=== PATIENT | male | born 1930 | race Caucasian/White ===

== ENCOUNTER 2021-08-05 10:39 | Emergency (ER) | payer MEDICARE ==
[~2021-08-05] VITALS: Ht 177.8 cm; Wt 90.7 kg
[2021-08-05] MEDS ORDERED: FUROSEMIDE INJ 10 MG/ML 2 ML VIAL IV ONE (11:30)
[2021-08-05] MEDS ORDERED: SODIUM CHLORIDE FLUSH 10 ML SYR IV PRN (11:30)
[2021-08-05 11:53] LABS: BASOPHILS % 0.3 % (0.0-1.0); EOSINOPHILS % 0.5 % (0.0-6.0); HEMATOCRIT 35.7 % (38.2-49.6); HEMOGLOBIN 10.7 g/dL (14.0-18.0); LYMPHOCYTES # (AUTO) 0.3 (1.0-3.2); LYMPHOCYTES % 5.7 % (18.0-39.1); MEAN CORPUSCULAR HEMOGLOBIN 27.4 pg (28-32); MEAN CORPUSCULAR VOLUME 91.3 fL (81-99); MONOCYTES # (AUTO) 0.5 (0.2-0.8); MONOCYTES % 8.3 % (4.4-11.3); NEUTROPHILS # (AUTO) 4.9 (2.1-6.9); NEUTROPHILS % 84.7 % (38.7-80.0); PLATELET COUNT 258 x10e3/uL (140-360); RED BLOOD COUNT 3.91 x10e6/uL (4.3-5.7); RED CELL DISTRIBUTION WIDTH 16.1 % (11.7-14.4)
[2021-08-05] MEDS ORDERED: SIMVASTATIN40 MG PO (12:00)
[2021-08-05] MEDS ORDERED: MELATONIN3 MG PO (12:00)
[2021-08-05] MEDS ORDERED: BIOTIN5000 MCG PO (12:00)
[2021-08-05] MEDS ORDERED: LISINOPRIL10 MG PO (12:00)
[2021-08-05] MEDS ORDERED: OMEPRAZOLE40 MG PO (12:00)
[2021-08-05] MEDS ORDERED: MEMANTINE HCL5 MG PO (12:00)
[2021-08-05] MEDS ORDERED: NIFEDIPINE ER30 M1 PO (12:00)
[2021-08-05] MEDS ORDERED: B-121000 MC1 PO (12:00)
[2021-08-05] MEDS ORDERED: VITAMIN E1000 UNI1 PO (12:00)
[2021-08-05] MEDS ORDERED: MULTI-VITAMIN1 EACH PO (12:00)
[2021-08-05 12:10] LABS: INR 0.93; PROTHROMBIN TIME 13.3 seconds (11.9-14.5)
[2021-08-05 12:11] LABS: PARTIAL THROMBOPLASTIN TIME 33.4 seconds (23.8-35.5)
[2021-08-05 12:14] LABS: ALBUMIN 2.8 g/dL (3.5-5.0); ALBUMIN/GLOBULIN RATIO 0.7 (0.8-2.0); ANION GAP 13.2 mmol/L (8-16); CALCIUM 8.5 mg/dL (8.4-10.2); CREATININE, SERUM 1.19 mg/dL (0.72-1.25); POTASSIUM 4.2 mmol/L (3.5-5.1)
== END 2021-08-05 15:21 | disposition home or self-care (01) ==
LOC: ER 11:34
DX: R60.9 Edema, unspecified (principal); J90 Pleural effusion, not elsewhere classified; F03.90 Unspecified dementia, unspecified severity, without behavioral disturbance, psychotic disturbance, mood disturbance, and anxiety; I10 Essential (primary) hypertension; E78.5 Hyperlipidemia, unspecified
CPT/HCPCS: 36415; 71045; 80053; 83880; 84484; 85025; 85610; 85730; 93005; 94760; 99284; J1940

== ENCOUNTER 2021-08-16 15:10 | Inpatient (IN) | payer MEDICARE ==
[~2021-08-16] VITALS: Ht 177.8 cm; Wt 76.7 kg
[~2021-08-16 15:10] MED LIST: B-121000 MC1 PO; BIOTIN5000 MCG PO; LISINOPRIL10 MG PO; MELATONIN3 MG PO; MEMANTINE HCL5 MG PO; MULTI-VITAMIN1 EACH PO; NIFEDIPINE ER30 M1 PO; OMEPRAZOLE40 MG PO; SIMVASTATIN40 MG PO; VITAMIN E1000 UNI1 PO
[2021-08-16] MEDS ORDERED: SODIUM CHLORIDE FLUSH 10 ML SYR INJ PRN ×2 (15:30→17:15)
[2021-08-16] MEDS ORDERED: FUROSEMIDE INJ 10 MG/ML 4 ML VIAL IV ONE (15:30)
[2021-08-16 15:41] LABS: HEMATOCRIT 37.5 % (38.2-49.6); HEMOGLOBIN 11.6 g/dL (14.0-18.0); LYMPHOCYTES # (AUTO) 0.2 (1.0-3.2); LYMPHOCYTES % 3.1 % (18.0-39.1); MEAN CORPUSCULAR HEMOGLOBIN 27.3 pg (28-32); MEAN CORPUSCULAR HGB CONC 30.9 g/dL (31-35); MEAN CORPUSCULAR VOLUME 88.2 fL (81-99); MONOCYTES # (AUTO) 0.6 (0.2-0.8); MONOCYTES % 7.7 % (4.4-11.3); NEUTROPHILS # (AUTO) 6.7 (2.1-6.9); NEUTROPHILS % 88.8 % (38.7-80.0); PLATELET COUNT 277 x10e3/uL (140-360); RED BLOOD COUNT 4.25 x10e6/uL (4.3-5.7)
[2021-08-16 16:02] LABS: ALBUMIN/GLOBULIN RATIO 0.8 (0.8-2.0); ANION GAP 17.8 mmol/L (8-16); CALCIUM 8.9 mg/dL (8.4-10.2); CREATININE, SERUM 1.1 mg/dL (0.72-1.25); POTASSIUM 3.8 mmol/L (3.5-5.1)
[2021-08-16 16:08] LABS: CREATINE KINASE MB 1.2 ng/mL (0-5.0)
[2021-08-16] MEDS ORDERED: ELIQUIS5 MG PO (16:54)
[2021-08-16] MEDS ORDERED: LASIX40 MG PO (16:54)
[2021-08-16] MEDS ORDERED: ASPIRIN81 MG PO (16:54)
[2021-08-16 18:13] LABS: CLARITY,URINE CLEAR (CLEAR); COLOR,URINE YELLOW (YELLOW); KETONES,URINE NEGATIVE (NEGATIVE); LEUKOCYTE ESTERASE ,URINE NEGATIVE (NEGATIVE); NITRITE,URINE NEGATIVE (NEGATIVE); PROTEIN,URINE DIPSTICK NEGATIVE (NEGATIVE); URINE UROBILINOGEN 0.2 mg/dL (0.2 - 1)
[2021-08-16 18:25] LABS: EPITHELIAL CELLS,URINE FEW /LPF
[2021-08-16] MEDS ORDERED: ONDANSETRON HCL INJ 2MG/ML 2ML 2 MG/ML VIAL IV PRN (19:00)
[2021-08-16] MEDS ORDERED: ACETAMINOPHEN 325 MG TAB PO PRN (19:00)
[2021-08-16 21:44] VITALS: BP 105/59
[2021-08-16 22:30] VITALS: BP 105/59
[2021-08-17] VITALS (9 sets, daily range): BP systolic 99–119; BP diastolic 69–85
[2021-08-17] MEDS ORDERED: FUROSEMIDE40 MG PO (02:30)
[2021-08-17] MEDS ORDERED: MEMANTINE HCL10 MG PO (02:30)
[2021-08-17 04:46] LABS: EOSINOPHILS % 0.3 % (0.0-6.0); HEMATOCRIT 36.7 % (38.2-49.6); HEMOGLOBIN 11.3 g/dL (14.0-18.0); LYMPHOCYTES # (AUTO) 0.4 (1.0-3.2); LYMPHOCYTES % 7.1 % (18.0-39.1); MEAN CORPUSCULAR HEMOGLOBIN 27.2 pg (28-32); MEAN CORPUSCULAR HGB CONC 30.8 g/dL (31-35); MEAN CORPUSCULAR VOLUME 88.4 fL (81-99); MONOCYTES # (AUTO) 0.7 (0.2-0.8); MONOCYTES % 12.9 % (4.4-11.3); NEUTROPHILS # (AUTO) 4.6 (2.1-6.9); NEUTROPHILS % 79.5 % (38.7-80.0); PLATELET COUNT 249 x10e3/uL (140-360); RED BLOOD COUNT 4.15 x10e6/uL (4.3-5.7); RED CELL DISTRIBUTION WIDTH 15.9 % (11.7-14.4)
[2021-08-17 05:10] LABS: ALBUMIN 2.7 g/dL (3.5-5.0); ALBUMIN/GLOBULIN RATIO 0.7 (0.8-2.0); ANION GAP 18.4 mmol/L (8-16); CALCIUM 8.5 mg/dL (8.4-10.2); CREATININE, SERUM 1.08 mg/dL (0.72-1.25); POTASSIUM 3.4 mmol/L (3.5-5.1)
[2021-08-17] MEDS ORDERED: FUROSEMIDE INJ 10 MG/ML 4 ML VIAL IV SCH (09:00)
[2021-08-17 11:05] LABS: INR 1.32; PROTHROMBIN TIME 17.5 seconds (11.9-14.5)
[2021-08-17] MEDS: PANTOPRAZOLE SOD 40 MG TABEC PO SCH (12:27)
[2021-08-17] MEDS: MEMANTINE 10 MG TAB PO SCH (16:57)
[2021-08-17] MEDS: APIXABAN 5 MG TABLET PO SCH (16:57)
[2021-08-17] MEDS: MELATONIN 5 MG TABLET PO SCH (21:12)
[2021-08-17] MEDS: SIMVASTATIN 40 MG TAB PO SCH (21:12)
[2021-08-18] VITALS (8 sets, daily range): BP systolic 105–127; BP diastolic 55–77
[2021-08-18] MEDS ORDERED: OMEPRAZOLE 20 MG CAP PO SCH (06:30)
[2021-08-18 06:38] LABS: HEMATOCRIT 36.6 % (38.2-49.6); HEMOGLOBIN 11.4 g/dL (14.0-18.0); MEAN CORPUSCULAR HEMOGLOBIN 27.7 pg (28-32); MEAN CORPUSCULAR HGB CONC 31.1 g/dL (31-35); MEAN CORPUSCULAR VOLUME 88.8 fL (81-99); PLATELET COUNT 269 x10e3/uL (140-360); RED BLOOD COUNT 4.12 x10e6/uL (4.3-5.7); RED CELL DISTRIBUTION WIDTH 15.9 % (11.7-14.4)
[2021-08-18 07:07] LABS: ANION GAP 17.2 mmol/L (8-16); CALCIUM 8.4 mg/dL (8.4-10.2); CREATININE, SERUM 1.18 mg/dL (0.72-1.25); POTASSIUM 3.2 mmol/L (3.5-5.1)
[2021-08-18 08:28] LABS: EOSINOPHILS % (MANUAL) 1 % (0-7); LYMPHOCYTES % (MANUAL) 6 % (19-48); MONOCYTES % (MANUAL) 10 % (3.4-9.0); NEUTROPHILS % (MANUAL) 83 % (40-74)
[2021-08-18 08:30] LABS: PLATELET ESTIMATE ADEQUATE; PLATELET MORPHOLOGY COMMENT NORMAL; RBC MORPHOLOGY COMMENT NORMAL
[2021-08-18] MEDS: NIFEDIPINE CR 30 MG TAB PO SCH (09:00)
[2021-08-18] MEDS: LISINOPRIL 10 MG TAB PO SCH (09:00)
[2021-08-18] MEDS: APIXABAN 5 MG TABLET PO SCH ×2 (09:00→17:09)
[2021-08-18] MEDS: ASPIRIN 81 MG CHEW TAB PO SCH (09:00)
[2021-08-18] MEDS: FUROSEMIDE INJ 10 MG/ML 2 ML VIAL IV SCH (09:05)
[2021-08-18] MEDS: PANTOPRAZOLE SOD 40 MG TABEC PO SCH (09:07)
[2021-08-18] MEDS: MEMANTINE 10 MG TAB PO SCH ×2 (09:07→17:09)
[2021-08-18] MEDS ORDERED: POTASSIUM CHLORIDE 10MEQ EA PO ONE (10:15)
[2021-08-18 10:47] LABS: ANION GAP 19.2 mmol/L (8-16); CALCIUM 8.6 mg/dL (8.4-10.2); CREATININE, SERUM 1.09 mg/dL (0.72-1.25); POTASSIUM 3.2 mmol/L (3.5-5.1)
[2021-08-18 14:46] LABS: BODY FLUID APPEARANCE CLOUDY; BODY FLUID COLOR RED; BODY FLUID TYPE PLEURAL
[2021-08-18 14:55] LABS: RBC,BODY FLUID 22000 cells/uL; WBC,BODY FLUID 99 cells/uL
[2021-08-18 18:35] LABS: LYMPHOCYTES,BODY FLUID 64 %; MONO/MACROPHG,BODY FLUID 34 %; NEUTROPHILS,BODY FLUID 2 %
[2021-08-18] MEDS: MELATONIN 5 MG TABLET PO SCH (21:00)
[2021-08-18] MEDS: SIMVASTATIN 40 MG TAB PO SCH (21:00)
[2021-08-19] VITALS (7 sets, daily range): BP systolic 92–134; BP diastolic 56–96
[2021-08-19 06:02] LABS: HEMATOCRIT 42.3 % (38.2-49.6); HEMOGLOBIN 12.8 g/dL (14.0-18.0); MEAN CORPUSCULAR HEMOGLOBIN 27.5 pg (28-32); MEAN CORPUSCULAR HGB CONC 30.3 g/dL (31-35); MEAN CORPUSCULAR VOLUME 90.8 fL (81-99); PLATELET COUNT 298 x10e3/uL (140-360); RED BLOOD COUNT 4.66 x10e6/uL (4.3-5.7); RED CELL DISTRIBUTION WIDTH 15.8 % (11.7-14.4)
[2021-08-19 09:37] LABS: LYMPHOCYTES % (MANUAL) 8 % (19-48); MONOCYTES % (MANUAL) 5 % (3.4-9.0); NEUTROPHILS % (MANUAL) 87 % (40-74); PLATELET ESTIMATE ADEQUATE; PLATELET MORPHOLOGY COMMENT NORMAL; RBC MORPHOLOGY COMMENT NORMAL
[2021-08-19] MEDS: APIXABAN 5 MG TABLET PO SCH ×2 (09:42→17:36)
[2021-08-19] MEDS: MEMANTINE 10 MG TAB PO SCH ×2 (09:42→17:36)
[2021-08-19] MEDS: PANTOPRAZOLE SOD 40 MG TABEC PO SCH (09:42)
[2021-08-19] MEDS: FUROSEMIDE INJ 10 MG/ML 2 ML VIAL IV SCH (09:42)
[2021-08-19] MEDS: ASPIRIN 81 MG CHEW TAB PO SCH (09:42)
[2021-08-19] MEDS: LISINOPRIL 10 MG TAB PO SCH (09:44)
[2021-08-19] MEDS: NIFEDIPINE CR 30 MG TAB PO SCH (09:44)
[2021-08-19] MEDS ORDERED: POTASSIUM CHLORIDE 10MEQ EA PO ONE (11:15)
[2021-08-19] MEDS ORDERED: ONDANSETRON HCL 4 MG ORAL DISINTEGRATING TAB PO PRN (14:30)
[2021-08-19] MEDS: SIMVASTATIN 40 MG TAB PO SCH (21:32)
[2021-08-19] MEDS: MELATONIN 5 MG TABLET PO SCH (21:32)
[2021-08-20] VITALS (7 sets, daily range): BP systolic 80–113; BP diastolic 50–92
[2021-08-20] MEDS: LISINOPRIL 10 MG TAB PO SCH (08:52)
[2021-08-20] MEDS: DOCUSATE SODIUM 100 MG CAP PO SCH ×2 (08:52→17:00)
[2021-08-20] MEDS: APIXABAN 5 MG TABLET PO SCH (08:52)
[2021-08-20] MEDS: MEMANTINE 10 MG TAB PO SCH ×2 (08:52→17:00)
[2021-08-20] MEDS: PANTOPRAZOLE SOD 40 MG TABEC PO SCH (08:52)
[2021-08-20] MEDS: FUROSEMIDE INJ 10 MG/ML 2 ML VIAL IV SCH (08:52)
[2021-08-20] MEDS: ASPIRIN 81 MG CHEW TAB PO SCH (08:52)
[2021-08-20] MEDS: NIFEDIPINE CR 30 MG TAB PO SCH (08:53)
[2021-08-20] MEDS: MELATONIN 5 MG TABLET PO SCH (21:03)
[2021-08-20] MEDS: SIMVASTATIN 40 MG TAB PO SCH (21:03)
[2021-08-21] VITALS (7 sets, daily range): BP systolic 92–132; BP diastolic 54–71
[2021-08-21 07:15] LABS: BASOPHILS % 0.3 % (0.0-1.0); EOSINOPHILS # (AUTO) 0.1 (0.0-0.4); EOSINOPHILS % 1.3 % (0.0-6.0); HEMATOCRIT 36.9 % (38.2-49.6); HEMOGLOBIN 11.3 g/dL (14.0-18.0); LYMPHOCYTES # (AUTO) 0.5 (1.0-3.2); LYMPHOCYTES % 7.7 % (18.0-39.1); MEAN CORPUSCULAR HEMOGLOBIN 27.4 pg (28-32); MEAN CORPUSCULAR HGB CONC 30.6 g/dL (31-35); MEAN CORPUSCULAR VOLUME 89.3 fL (81-99); MONOCYTES # (AUTO) 0.6 (0.2-0.8); MONOCYTES % 9.8 % (4.4-11.3); NEUTROPHILS # (AUTO) 4.8 (2.1-6.9); NEUTROPHILS % 80.4 % (38.7-80.0); PLATELET COUNT 250 x10e3/uL (140-360); RED BLOOD COUNT 4.13 x10e6/uL (4.3-5.7); RED CELL DISTRIBUTION WIDTH 15.8 % (11.7-14.4)
[2021-08-21 07:25] LABS: ANION GAP 14.9 mmol/L (8-16); CALCIUM 8.7 mg/dL (8.4-10.2); CREATININE, SERUM 1.03 mg/dL (0.72-1.25); POTASSIUM 3.9 mmol/L (3.5-5.1)
[2021-08-21] MEDS: MEMANTINE 10 MG TAB PO SCH ×2 (09:00→17:00)
[2021-08-21] MEDS: FUROSEMIDE INJ 10 MG/ML 2 ML VIAL IV SCH (09:00)
[2021-08-21] MEDS: ASPIRIN 81 MG CHEW TAB PO SCH (09:00)
[2021-08-21] MEDS: LISINOPRIL 10 MG TAB PO SCH (09:00)
[2021-08-21] MEDS: PANTOPRAZOLE SOD 40 MG TABEC PO SCH (09:00)
[2021-08-21] MEDS: DOCUSATE SODIUM 100 MG CAP PO SCH ×2 (09:00→17:00)
[2021-08-21] MEDS: MELATONIN 5 MG TABLET PO SCH (21:00)
[2021-08-21] MEDS: SIMVASTATIN 40 MG TAB PO SCH (21:00)
[2021-08-22 01:12] VITALS: BP 119/83
[2021-08-22 05:17] VITALS: BP 115/75
[2021-08-22] MEDS ORDERED: HEPARIN SOD/SOD CHLORIDE 1,000 ML ONE (08:50)
[2021-08-22 08:53] VITALS: BP 115/82
[2021-08-22] MEDS: MEMANTINE 10 MG TAB PO SCH (09:00)
[2021-08-22] MEDS: PANTOPRAZOLE SOD 40 MG TABEC PO SCH (09:00)
[2021-08-22] MEDS: FUROSEMIDE INJ 10 MG/ML 2 ML VIAL IV SCH (09:00)
[2021-08-22] MEDS ORDERED: BUPIVACAINE HC 0.75% PF 10ML VIAL INJ ONE (09:47)
[2021-08-22] MEDS ORDERED: LIDOCAINE 2% /EPINEPHRINE 20 ML SDV INJ ONE (09:48)
[2021-08-22] MEDS ORDERED: SUGAMMADEX SODIUM 200 MG/2 ML VIAL IV ONE (11:49)
[2021-08-22] MEDS ORDERED: PROPOFOL IV EMULSION 10 MG/ML 20 ML VIAL ONE (12:02)
[2021-08-22] MEDS ORDERED: PHENYLEPHRINE HCL 1% 10 MG/ML VIAL ONE (12:02)
[2021-08-22] MEDS ORDERED: DEXAMETHASONE SOD PHOS INJ 4 MG/ML SDV ONE (12:02)
[2021-08-22] MEDS ORDERED: EPHEDRINE SULFATE INJ 50 MG/ML VIAL ONE (12:02)
[2021-08-22] MEDS ORDERED: POVIDONE IODINE 0.05% 0.05 % ML PO ONE (12:02)
[2021-08-22] MEDS ORDERED: LIDOCAINE HCL 2% LOCAL INJ 5 ML SDV VIAL INJ ONE (12:02)
[2021-08-22] MEDS ORDERED: ROCURONIUM BROMIDE 10 MG/ML 5ML VIAL IV ONE (12:02)
[2021-08-22] MEDS ORDERED: SEVOFLURANE INHAL SOLN 250 ML PEN BTL ONE (12:02)
[2021-08-22] MEDS ORDERED: ONDANSETRON HCL INJ 2MG/ML 2ML 2 MG/ML VIAL ONE (12:02)
[2021-08-22] MEDS ORDERED: FENTANYL CITRATE/PF 100MCG/2 ML INJ ONE (12:12)
[2021-08-22] MEDS ORDERED: HYDROMORPHONE 1MG/1ML INJ IV PRN (12:45)
[2021-08-22] MEDS ORDERED: SODIUM CHLORIDE 0.9% 1000ML 1,000 ML IV SCH (12:45)
[2021-08-22] MEDS ORDERED: HYDROCODONE/APAP 5MG-325MG TAB PO PRN (12:45)
[2021-08-22 13:20] VITALS: BP 90/51
[2021-08-22] MEDS ORDERED: NOREPINEPHRINE 8 MG/D5W 250 ML 250 ML IV SCH (13:45)
[2021-08-22] MEDS ORDERED: NOREPINEPHRINE 8 MG/D5W 250 ML 250 ML ONE (14:00)
[2021-08-22 14:15] LABS: BASOPHILS % 0.2 % (0.0-1.0); EOSINOPHILS % 0.3 % (0.0-6.0); HEMATOCRIT 31.7 % (38.2-49.6); HEMOGLOBIN 9.4 g/dL (14.0-18.0); LYMPHOCYTES # (AUTO) 0.4 (1.0-3.2); LYMPHOCYTES % 4.7 % (18.0-39.1); MEAN CORPUSCULAR HEMOGLOBIN 27.2 pg (28-32); MEAN CORPUSCULAR HGB CONC 29.7 g/dL (31-35); MEAN CORPUSCULAR VOLUME 91.6 fL (81-99); MONOCYTES # (AUTO) 0.3 (0.2-0.8); MONOCYTES % 2.8 % (4.4-11.3); NEUTROPHILS # (AUTO) 8.4 (2.1-6.9); NEUTROPHILS % 91.7 % (38.7-80.0); PLATELET COUNT 286 x10e3/uL (140-360); RED BLOOD COUNT 3.46 x10e6/uL (4.3-5.7); RED CELL DISTRIBUTION WIDTH 15.7 % (11.7-14.4)
[2021-08-22 14:35] LABS: ALBUMIN 2.2 g/dL (3.5-5.0); ALBUMIN/GLOBULIN RATIO 0.7 (0.8-2.0); CALCIUM 7.7 mg/dL (8.4-10.2); CREATININE, SERUM 1.01 mg/dL (0.72-1.25)
[2021-08-22] MEDS ORDERED: AMIODARONE HCL 150 MG/100 ML BAG IV ONE (15:00)
[2021-08-22] MEDS ORDERED: LACTATED RINGER'S 500 ML IV ONE (15:00)
[2021-08-22] MEDS ORDERED: AMIODARONE HCL 150 MG in DEXTROSE 5% 100ML 100 ML IV SCH (15:00)
[2021-08-22] MEDS ORDERED: LACTATED RINGER'S 1,000 ML ONE (15:05)
[2021-08-22] MEDS ORDERED: AMIODARONE 900MG 500 ML IV SCH (15:10)
[2021-08-22] MEDS ORDERED: SODIUM CHLORIDE 0.9% 250ML 250 ML IV ONE (15:15)
[2021-08-22] MEDS ORDERED: ACETAMINOPHEN 1000 MG/100 ML IV PRN (16:00)
== END 2021-08-23 00:34 | disposition expired | DRG 981 ==
LOC: ER 15:15 → ERHOLD 17:13 → MED/SURG 21:19 → MED/SURG2 08-18 23:00 → ICU 08-22 13:04
PROVIDERS: ADMIT Internal Medicine; ATTEND Internal Medicine
PROC: 0BCP4ZZ Extirpation of Matter from Left Pleura, Percutaneous Endoscopic Approach (ICD-10-PCS; 2021-08-16)
PROC: 0BBN4ZZ Excision of Right Pleura, Percutaneous Endoscopic Approach (ICD-10-PCS; 2021-08-16)
PROC: 0W9940Z Drainage of Right Pleural Cavity with Drainage Device, Percutaneous Endoscopic Approach (ICD-10-PCS; 2021-08-16)
PROC: 0W993ZZ Drainage of Right Pleural Cavity, Percutaneous Approach (ICD-10-PCS; 2021-08-16)
PROC: 30243N1 Transfusion of Nonautologous Red Blood Cells into Central Vein, Percutaneous Approach (ICD-10-PCS; 2021-08-22)
PROC: 3E033XZ Introduction of Vasopressor into Peripheral Vein, Percutaneous Approach (ICD-10-PCS; 2021-08-22)
PROC: 02HV33Z Insertion of Infusion Device into Superior Vena Cava, Percutaneous Approach (ICD-10-PCS; principal; 2021-08-22 09:59)
DX: I13.0 Hypertensive heart and chronic kidney disease with heart failure and stage 1 through stage 4 chronic kidney disease, or unspecified chronic kidney disease (principal); G93.41 Metabolic encephalopathy; I50.33 Acute on chronic diastolic (congestive) heart failure; J90 Pleural effusion, not elsewhere classified; E44.1 Mild protein-calorie malnutrition; J98.11 Atelectasis; N18.30 Chronic kidney disease, stage 3 unspecified; D64.9 Anemia, unspecified; F03.90 Unspecified dementia, unspecified severity, without behavioral disturbance, psychotic disturbance, mood disturbance, and anxiety; I48.0 Paroxysmal atrial fibrillation; Z79.01 Long term (current) use of anticoagulants; Z96.651 Presence of right artificial knee joint; Z68.24 Body mass index [BMI] 24.0-24.9, adult; Z20.822 Contact with and (suspected) exposure to COVID-19; Z66 Do not resuscitate; R60.0 Localized edema; J84.10 Pulmonary fibrosis, unspecified
CPT/HCPCS: 32555; 36415; 71045; 71046; 71250; 74470; 80048; 80053; 81001; 82550; 82553; 83615; 83880; 84157; 84484; 85007; 85025; 85027; 85610; 86850; 86900; 86920; 87070; 87205; 88305; 88331; 89051; 93005; 93970; 94799; 99251; 99284; C1713; J0690; J0696; J1100; J1940; J2001; J2370; J2405; J3010; J7050; J7121; P9016